=== PATIENT | female | born 1995 | race Caucasian/White ===

== ENCOUNTER 2022-07-24 05:00 | Day surgery (SDC) | payer MEDICAID ==
[~2022-07-24] VITALS: Ht 160 cm; Wt 59.0 kg
[2022-07-24 05:47] LABS: HCG,QUAL RESULT NEGATIVE (NEGATIVE)
[2022-07-24] MEDS ORDERED: MEPERIDINE 100 MG INJ. 100 MG/ML VIAL ONE (06:38)
[2022-07-24] MEDS ORDERED: SIMETHICONE 40 MG/0.6 ML ML ONE (06:38)
[2022-07-24] MEDS ORDERED: MIDAZOLAM HCL 5 MG/5 ML VIAL ONE (06:39)
[2022-07-24 10:33] VITALS: BP_SYST 96
== END 2022-07-24 09:30 | disposition home or self-care (01) ==
LOC: SMU 05:00 → SDS 05:00
PROVIDERS: ATTEND Internal Medicine Gastroenterology
DX: Z09 Encounter for follow-up examination after completed treatment for conditions other than malignant neoplasm (principal); K51.00 Ulcerative (chronic) pancolitis without complications; K64.8 Other hemorrhoids; Z88.0 Allergy status to penicillin; Z20.822 Contact with and (suspected) exposure to COVID-19
CPT/HCPCS: 45380; 87426; 84703; 36415; 88305; 99152; G0378; J2250; J2175